=== PATIENT | female | born 1950 | race Caucasian/White ===

== ENCOUNTER 2016-08-30 11:10 | Emergency (ER) | payer OTHER ==
[~2016-08-30] VITALS: Ht 160 cm; Wt 68.6 kg
[~2016-08-30 11:10] MED LIST: ATARAX,VISTARIL25 MG PO; COLACE100 MG PO; CORTIZONE-1028 GM TP; GENTAK3.5 GM; KEFLEX500 MG PO; NAPROSYN500 MG PO; NOHOMEMEDS; PERCOCET 5/31 TABLET PO; PREDNISONE20 MG PO; PYRIDIUM100 MG PO; ULTRAM50 MG PO; VENTOLIN HFA18 GM IH; VICODIN,LORT1 TABLET PO; ZITHROMAX Z-PA250 MG PO
[2016-08-30 12:09] LABS: HEMATOCRIT 40.3 % (36.0-46.0); MCH 32.4 PG (29.0-34.0); MCHC 33.5 G/DL (30.0-36.0); MCV 96.6 FL (83-99); MEAN PLAT.VOLUME 11.2 uM^3 (9.5-12.4); PLATELET COUNT 223 K/uL (156-360); RBC DIS.WIDTH-CV 12.7 % (11.8-14.6); RBC DIS.WIDTH-SD 45.7 % (39-53); RED BLOOD COUNT 4.17 M/uL (3.80-5.20); WHITE BLOOD COUNT 7.6 K/uL (4.1-10.2)
[2016-08-30] MEDS ORDERED: OMEPRAZOLE40 M1 PO (12:20)
[2016-08-30 12:22] LABS: CHLORIDE 106 mEq/L (99-109); SODIUM 141 mEq/L (136-147)
[2016-08-30 12:24] LABS: GLUCOSE 153 mg/dL (70-99)
[2016-08-30 12:25] LABS: ANION GAP 12 MEQ/L (2-14)
[2016-08-30 12:25] LABS: ADD MIUA? YES; BILIRUBIN NEGATIVE; BLOOD NEGATIVE; COLOR YELLOW ((YELLOW)); GLUCOSE (STRIP) NEGATIVE; KETONES NEGATIVE; LEUKOCYTES SMALL; NITRITE POSITIVE; PROTEIN (STRIP) 30; SPECIFIC GRAVITY 1.016 (1.000-1.030); UROBILINOGEN 0.2 MG/DL (0.2-1.0)
[2016-08-30 12:26] LABS: TOTAL BILIRUBIN 0.5 mg/dL (0.0-1.0)
[2016-08-30 12:27] LABS: ALKALINE PHOSPHATASE 120 IU/L (3-129)
[2016-08-30 12:28] LABS: GFR ESTIMATE (CALCULATED) 37 mL/min/
[2016-08-30 12:29] LABS: BACTERIA RARE /HPF; EPITHELIAL CELLS RARE /HPF; MUCUS TRACE /LPF; RED BLOOD CELLS 0-5 /HPF (0-5); UCUL ADDED? NO; WHITE BLOOD CELLS 15-20 /HPF (0-5)
[2016-08-30 12:29] LABS: UREA NITROGEN (BUN) 19 mg/dL (9-23)
[2016-08-30] MEDS ORDERED: MILK OF MAGN PO (13:38)
[2016-08-30 14:06] VITALS: BP 130/78
== END 2016-08-30 14:14 | disposition home or self-care (01) ==
LOC: EME 11:10
DX: K59.00 Constipation, unspecified (principal); N39.0 Urinary tract infection, site not specified; K21.9 Gastro-esophageal reflux disease without esophagitis; Z87.440 Personal history of urinary (tract) infections; Z88.6 Allergy status to analgesic agent; Z88.2 Allergy status to sulfonamides; Z87.891 Personal history of nicotine dependence; Z85.41 Personal history of malignant neoplasm of cervix uteri
CPT/HCPCS: 74020; 80053; 81003; 85027; 99281; 99284

== ENCOUNTER 2016-10-06 15:53 | Emergency (ER) | payer OTHER ==
[~2016-10-06] VITALS: Ht 160 cm; Wt 68.6 kg
[~2016-10-06 15:53] MED LIST changes: +MILK OF MAGN PO; +OMEPRAZOLE40 M1 PO
[2016-10-06 19:44] VITALS: BP 125/89
== END 2016-10-06 20:04 | disposition home or self-care (01) ==
LOC: EME 15:53
DX: S82.002A Unspecified fracture of left patella, initial encounter for closed fracture (principal); W18.30XA Fall on same level, unspecified, initial encounter; Z87.891 Personal history of nicotine dependence; K21.9 Gastro-esophageal reflux disease without esophagitis
CPT/HCPCS: 73564; 73700; 99281; 99283; J1100

== ENCOUNTER 2016-10-07 17:16 | Emergency (ER) | payer OTHER ==
[~2016-10-07] VITALS: Ht 160 cm; Wt 67.4 kg
[2016-10-07 19:47] VITALS: BP 120/92
== END 2016-10-07 20:15 | disposition home or self-care (01) ==
LOC: EME 17:16
DX: F43.23 Adjustment disorder with mixed anxiety and depressed mood (principal); F32.9 Major depressive disorder, single episode, unspecified; F41.9 Anxiety disorder, unspecified; Z87.891 Personal history of nicotine dependence; K21.9 Gastro-esophageal reflux disease without esophagitis; Z85.41 Personal history of malignant neoplasm of cervix uteri
CPT/HCPCS: 90837; 99281; 99284

== ENCOUNTER 2016-12-01 10:43 | Emergency (ER) | payer OTHER ==
[~2016-12-01] VITALS: Ht 160 cm; Wt 68.5 kg
[2016-12-01 11:31] LABS: HEMATOCRIT 39.9 % (36.0-46.0); MCH 32.5 PG (29.0-34.0); MCHC 33.6 G/DL (30.0-36.0); MCV 96.8 FL (83-99); MEAN PLAT.VOLUME 11.4 uM^3 (9.5-12.4); PLATELET COUNT 183 K/uL (156-360); RBC DIS.WIDTH-CV 12.6 % (11.8-14.6); RBC DIS.WIDTH-SD 45.1 % (39-53); RED BLOOD COUNT 4.12 M/uL (3.80-5.20); WHITE BLOOD COUNT 9.5 K/uL (4.1-10.2)
[2016-12-01 11:40] LABS: CHLORIDE 104 mEq/L (99-109); POTASSIUM 5.2 mEq/L (3.7-5.4); SODIUM 136 mEq/L (136-147)
[2016-12-01 11:42] LABS: GLUCOSE 125 mg/dL (70-99)
[2016-12-01 11:43] LABS: ANION GAP 9 MEQ/L (2-14)
[2016-12-01 11:44] LABS: TOTAL BILIRUBIN 0.5 mg/dL (0.0-1.0)
[2016-12-01 11:46] LABS: ALKALINE PHOSPHATASE 108 IU/L (3-129); GFR ESTIMATE (CALCULATED) 44 mL/min/
[2016-12-01 11:47] LABS: UREA NITROGEN (BUN) 18 mg/dL (9-23)
[2016-12-01 13:34] LABS: ADD MIUA? YES; BILIRUBIN NEGATIVE; BLOOD SMALL; COLOR YELLOW ((YELLOW)); GLUCOSE (STRIP) NEGATIVE; KETONES NEGATIVE; LEUKOCYTES TRACE; NITRITE POSITIVE; PROTEIN (STRIP) NEGATIVE; SPECIFIC GRAVITY 1.017 (1.000-1.030); UROBILINOGEN 0.2 MG/DL (0.2-1.0)
[2016-12-01 13:51] LABS: BACTERIA 3+ /HPF; CASTS NONE SEEN /LPF; CRYSTALS NONE SEEN; EPITHELIAL CELLS RARE /HPF; MUCUS 1+ /LPF; RED BLOOD CELLS 0-5 /HPF (0-5); UCUL ADDED? YES
[2016-12-01] MEDS ORDERED: KEFLEX500 MG PO ×2 (15:03→15:37)
[2016-12-01] MEDS ORDERED: BENTYL20 MG PO (15:03)
[2016-12-01] MEDS ORDERED: FLAGYL500 MG PO (15:13)
[2016-12-01] MEDS ORDERED: CIPRO500 MG PO (15:13)
[2016-12-01 16:13] VITALS: BP 113/67
== END 2016-12-01 16:15 | disposition home or self-care (01) ==
LOC: EME 10:43
DX: N39.0 Urinary tract infection, site not specified (principal); R10.32 Left lower quadrant pain; K21.9 Gastro-esophageal reflux disease without esophagitis; Z85.41 Personal history of malignant neoplasm of cervix uteri; Z88.8 Allergy status to other drugs, medicaments and biological substances; Z87.891 Personal history of nicotine dependence
CPT/HCPCS: 74177; 80053; 81003; 85027; 87077; 87086; 87186; 99281; 99284; J7030

== ENCOUNTER 2016-12-16 11:11 | Emergency (ER) | payer OTHER ==
[~2016-12-16] VITALS: Ht 160 cm; Wt 65.8 kg
[~2016-12-16 11:11] MED LIST changes: +BENTYL20 MG PO; +CIPRO500 MG PO; +FLAGYL500 MG PO
[2016-12-16 11:43] LABS: ADD MIUA? YES; BILIRUBIN NEGATIVE; BLOOD NEGATIVE; COLOR AMBER ((YELLOW)); GLUCOSE (STRIP) NEGATIVE; KETONES 5; LEUKOCYTES TRACE; NITRITE NEGATIVE; PROTEIN (STRIP) 100; SPECIFIC GRAVITY 1.025 (1.000-1.030)
[2016-12-16 12:05] LABS: BACTERIA 1+ /HPF; EPITHELIAL CELLS 1+ /HPF; MUCUS 1+ /LPF; RED BLOOD CELLS NONE SEEN /HPF (0-5); UCUL ADDED? YES
[2016-12-16 12:44] LABS: HEMATOCRIT 41.4 % (36.0-46.0); MCH 32.6 PG (29.0-34.0); MCHC 34.1 G/DL (30.0-36.0); MCV 95.8 FL (83-99); PLATELET COUNT 213 K/uL (156-360); RBC DIS.WIDTH-CV 12.7 % (11.8-14.6); RBC DIS.WIDTH-SD 45.3 % (39-53); RED BLOOD COUNT 4.32 M/uL (3.80-5.20); WHITE BLOOD COUNT 8.9 K/uL (4.1-10.2)
[2016-12-16 12:55] LABS: CHLORIDE 101 mEq/L (99-109); SODIUM 136 mEq/L (136-147)
[2016-12-16 12:57] LABS: GLUCOSE 138 mg/dL (70-99)
[2016-12-16 12:58] LABS: ANION GAP 12 MEQ/L (2-14)
[2016-12-16 12:59] LABS: TOTAL BILIRUBIN 0.6 mg/dL (0.0-1.0)
[2016-12-16 13:01] LABS: ALKALINE PHOSPHATASE 70 IU/L (3-129); GFR ESTIMATE (CALCULATED) 37 mL/min/
[2016-12-16 13:02] LABS: UREA NITROGEN (BUN) 21 mg/dL (9-23)
[2016-12-16 13:30] LABS: CHLORIDE 101 mEq/L (99-109); SODIUM 135 mEq/L (136-147)
[2016-12-16 13:33] LABS: GLUCOSE 105 mg/dL (70-99); POTASSIUM 3.9 mEq/L (3.7-5.4)
[2016-12-16 13:34] LABS: ANION GAP 12 MEQ/L (2-14)
[2016-12-16 13:35] LABS: TOTAL BILIRUBIN 0.6 mg/dL (0.0-1.0)
[2016-12-16 13:36] LABS: ALKALINE PHOSPHATASE 72 IU/L (3-129); GFR ESTIMATE (CALCULATED) 40 mL/min/
[2016-12-16 13:37] LABS: UREA NITROGEN (BUN) 20 mg/dL (9-23)
[2016-12-16] MEDS ORDERED: BENTYL20 MG PO (14:38)
[2016-12-16 15:19] VITALS: BP 134/82
== END 2016-12-16 15:19 | disposition home or self-care (01) ==
LOC: EME 11:11
PROVIDERS: Physician Assistant
DX: R19.7 Diarrhea, unspecified (principal); K21.9 Gastro-esophageal reflux disease without esophagitis; Z85.41 Personal history of malignant neoplasm of cervix uteri; Z80.0 Family history of malignant neoplasm of digestive organs; Z88.8 Allergy status to other drugs, medicaments and biological substances; Z87.891 Personal history of nicotine dependence
CPT/HCPCS: 80053; 81003; 85027; 87086 GA; 87493; 99281; 99283

== ENCOUNTER 2017-09-09 09:55 | Emergency (ER) | payer OTHER ==
[~2017-09-09] VITALS: Ht 160 cm; Wt 71.0 kg
[2017-09-09] MEDS ORDERED: PEN-VEE K,VEET500 MG PO (11:28)
[2017-09-09] MEDS ORDERED: PREDNISONE10 MG PO (11:29)
[2017-09-09 12:15] VITALS: BP 180/75
== END 2017-09-09 12:40 | disposition home or self-care (01) ==
LOC: EME 09:55
DX: K02.9 Dental caries, unspecified (principal); J44.9 Chronic obstructive pulmonary disease, unspecified; M19.90 Unspecified osteoarthritis, unspecified site; N30.10 Interstitial cystitis (chronic) without hematuria; Z87.891 Personal history of nicotine dependence; Z86.69 Personal history of other diseases of the nervous system and sense organs; Z88.6 Allergy status to analgesic agent; Z88.5 Allergy status to narcotic agent; Z88.2 Allergy status to sulfonamides; Z88.8 Allergy status to other drugs, medicaments and biological substances
CPT/HCPCS: J1885

== ENCOUNTER 2017-09-22 09:21 | Emergency (ER) | payer OTHER ==
[~2017-09-22] VITALS: Ht 160 cm; Wt 68.9 kg
[~2017-09-22 09:21] MED LIST changes: +PEN-VEE K,VEET500 MG PO; +PREDNISONE10 MG PO
[2017-09-22] MEDS ORDERED: ULTRAM50 MG PO (11:08)
[2017-09-22 12:03] VITALS: BP 127/96
== END 2017-09-22 12:04 | disposition home or self-care (01) ==
LOC: EME 09:21
DX: K08.89 Other specified disorders of teeth and supporting structures (principal); J43.9 Emphysema, unspecified; K21.9 Gastro-esophageal reflux disease without esophagitis; Z88.5 Allergy status to narcotic agent; Z88.2 Allergy status to sulfonamides; Z87.891 Personal history of nicotine dependence
CPT/HCPCS: 99281; 99283